=== PATIENT | male | born 1970 | race Hispanic/Latino ===

== ENCOUNTER → 2023-03-14 | Outpatient (CLI) | payer BC | END | disposition home or self-care (01) | LOC: RAH 12:55 | PROVIDERS: ATTEND Internal Medicine | DX: J47.9 Bronchiectasis, uncomplicated (principal); K21.9 Gastro-esophageal reflux disease without esophagitis; I51.7 Cardiomegaly; J84.9 Interstitial pulmonary disease, unspecified | CPT/HCPCS: 71250 ==

== ENCOUNTER → 2023-03-31 | Outpatient (CLI) | payer BC | END | disposition home or self-care (01) | LOC: RAH 12:55 → EDUNIT# 13:00 | PROVIDERS: ATTEND Internal Medicine | DX: I51.7 Cardiomegaly (principal); R06.02 Shortness of breath | CPT/HCPCS: 93306 ==

== ENCOUNTER → 2023-10-08 | Outpatient (CLI) | payer OTHER ==
[2023-10-08 13:45] LABS: ABG HCO3 25.7 mmol/L (21.0-28.0); ABG OXYGEN SATURATION 93.7 % (95.0-99.0); ABG PCO2 41 mmHg (35-48); ABG PH 7.413 (7.35-7.450); DEVICE COMMENT RA OUTPT; PO2, ARTERIAL BG 67.6 mmHg (83.0-108.0); VENT MODE, BG RR RA (ROOM AIR)
== END | disposition home or self-care (01) ==
LOC: LAB 12:52
PROVIDERS: ATTEND Internal Medicine Critical Care Medicine
DX: J84.170 Interstitial lung disease with progressive fibrotic phenotype in diseases classified elsewhere (principal)
CPT/HCPCS: 36600; 82803